=== PATIENT | female | born 1955 | race Caucasian/White ===

== ENCOUNTER 2021-02-23 06:17 | Inpatient (IN) | payer OTHER ==
[2021-02-14 14:48] LABS: BASOPHILS # (AUTO) 0.1 X10'3 (0-0.2); BASOPHILS % (AUTO) 1.2 % (0-1); EOSINOPHILS # (AUTO) 0.1 X10'3 (0-0.9); EOSINOPHILS % (AUTO) 2.4 % (0-6); LYMPHOCYTES % (AUTO) 33.8 % (21-51); MEAN CORPUSCULAR HEMOGLOBIN 33.6 PG (27.0-31.0); MEAN CORPUSCULAR HGB CONC 34.4 g/dL (33.0-36.5); MEAN CORPUSCULAR VOLUME 97.7 FL (78-98); MEAN PLATELET VOLUME 8.8 FL (7.4-10.4); MONOCYTES # (AUTO) 0.4 X10'3 (0-0.9); MONOCYTES % (AUTO) 6.2 % (2-12); NEUTROPHILS # (AUTO) 3.4 X10'3 (1.8-7.7); NEUTROPHILS % (AUTO) 56.4 % (42-75); PRE OP HEMATOCRIT 44.7 % (35.0-45.0); PRE OP HEMOGLOBIN 15.4 g/dL (12.0-16.0); PRE OP PLATELET COUNT 265 X10'3 (140-440); RED BLOOD COUNT 4.57 X10'6 (4.20-5.60); RED CELL DISTRIBUTION WIDTH 13.3 % (11.5-14.5)
[2021-02-14 15:07] LABS: ALBUMIN 4.4 G/DL (3.4-5.0); ALBUMIN/GLOBULIN RATIO 1.4 (1.1-1.5); ALKALINE PHOSPHATASE 39 IU/L (46-116); BLOOD UREA NITROGEN 19 MG/DL (7-18); BUN/CREATININE RATIO 16.5 (6.6-38.0); CALCIUM 9.2 MG/DL (8.5-10.1); CHLORIDE 108 MMOL/L (99-107); CREATININE 1.15 MG/DL (0.40-0.90); PRE OP ALT 53 U/L (30-65); PRE OP ANION GAP 11 (8-16); PRE OP AST 36 U/L (10-37); PRE OP BILIRUB, TOTAL 0.4 MG/DL (0.0-1.0); PRE OP GLUCOSE 140 MG/DL (70-104); PRE OP POTASSIUM 3.5 MMOL/L (3.4-5.1); PRE OP SODIUM 145 MMOL/L (135-145); TOTAL PROTEIN 7.5 G/DL (6.4-8.2); eGFR 48 ML/MIN
[2021-02-14 15:19] LABS: CLARITY,URINE CLEAR (Clear); COLOR,URINE Yellow (Yellow); GLUCOSE, URINE NEGATIVE (Neg); KETONES,URINE NEGATIVE (Neg); NITRITES, URINE NEGATIVE (Neg); OCCULT BLOOD,URINE NEGATIVE (Neg); PROTEIN,URINE NEGATIVE (Neg); UA COLLECTION TYPE CLN CATCH MIDSTREAM; UROBILINOGEN,URINE 0.2 E.U/dL (0.2-1.0)
[2021-02-14 15:20] LABS: LEUKOCYTE ESTERASE ,URINE NEGATIVE (Neg)
[~2021-02-23] VITALS: Ht 157.5 cm; Wt 74.0 kg
[2021-02-23] VITALS (23 sets, daily range): BP systolic 94–138; BP diastolic 56–80
[~2021-02-23 06:17] MED LIST: CHOL400T57 PO; FENO145T26 PO; LEVO75TA PO; MULT-1141 PO; ROSU20TA2 PO; SELE200C PO; VANCOMYCIN 1,500MG inj. 1,500 MG in normal saline 500ml IV soln 500 ML IV ONE; VITA0.4T2 PO; cefazolin/dext.iso 2gm/50ml 50 ML IV ONE; famotidine 20mg tablet PO ONE; ringers solution, lacted 1,000 ML IV SCH; tranexamic acid inj. 1,000 MG in normal saline 100 ML IV ONE
[2021-02-23] MEDS ORDERED: ROPIVAcaine inj 200 MG, epiNEPHrine inj 0.6 MG, morphine 10mg/ml inj. 5 MG in normal sa... IU ONE (07:35)
[2021-02-23] MEDS ORDERED: Thrombin (Bovine) 5,000 unit vial TP ONE (07:43)
[2021-02-23] MEDS ORDERED: vancomycin 1,000mg inj ONE (07:43)
[2021-02-23] MEDS ORDERED: fentaNYL/PF 50MCG/1 ML 2ML syringe ONE (07:52)
[2021-02-23] MEDS ORDERED: MIDAZolam 1mg/ml 10ml vial ONE (07:52)
[2021-02-23] MEDS ORDERED: proCHLORperazine 10 MG/2 ml inj IV PRN (09:20)
[2021-02-23] MEDS ORDERED: ondansetron/PF 4mg/2ml inj IV PRN ×2 (09:20→10:00)
[2021-02-23] MEDS ORDERED: morphine 2 MG/ML inj. syringe IV PRN (09:20)
[2021-02-23] MEDS ORDERED: meperidine/PF 25mg/ml syringe IV PRN ×2 (09:20)
[2021-02-23] MEDS ORDERED: ROPIVAcaine 0.2% (10 MG/5 ML) BOLUS INJECTION ADDCANAL PRN (09:20)
[2021-02-23] MEDS ORDERED: ringers solution, lacted 1,000 ML IV SCH (09:20)
[2021-02-23] MEDS ORDERED: morphine 4 MG/ML inj SYRINge IV PRN (09:20)
[2021-02-23] MEDS ORDERED: ROPIVAcaine 0.5% (5mg/ml) 30ml vial ONE (09:44)
[2021-02-23] MEDS ORDERED: dexamethasone sod phosphate 4mg/ml inj. ONE (09:44)
[2021-02-23] MEDS ORDERED: HYDROmorphone 1 mg/ml syringe IV PRN (10:00)
[2021-02-23] MEDS ORDERED: acetaminophen 325mg tablet PO PRN (10:00)
[2021-02-23] MEDS ORDERED: HYDROmorphone inj. 0.5 MG/0.5 ML DISP.SYRIN IV PRN (10:00)
[2021-02-23] MEDS ORDERED: diphenhydrAMINE 25mg capsule PO PRN ×2 (10:00)
[2021-02-23] MEDS ORDERED: bisacodyl 10mg suppository rectal RC PRN (10:00)
[2021-02-23] MEDS ORDERED: magnesium hydroxide 30ml (MOM) UD suspension PO PRN (10:00)
[2021-02-23] MEDS ORDERED: propofol inj 20 ML IV ONE (10:05)
[2021-02-23] MEDS: ROPIVAcaine 0.2%/PF PUMP/bolus 545 ML ADDCANAL SCH (10:32)
--- NOTE | 2021-02-23 10:42 | NUR ---
MORE AWAKE VSS NO DISTRESS SPINAL LEVEL CHECK L3 RESOLVING C/O PAIN IN RIGHT LEG 09/23 REPOSITION AND MED WITH DEMEROL 25MG IV. CONT TO MONITOR. Addendum: 02/23/21 at 1056 by Amara Heath RN Amended: Links added.
[2021-02-23] MEDS: meperidine/PF 25mg/ml syringe IV PRN ×3 (10:43→12:12)
[2021-02-23] MEDS ORDERED: SIMETHICONE PO PRN ×2 (10:45)
[2021-02-23] MEDS ORDERED: ALUMINUM HYDROXIDE PO PRN ×2 (10:45)
[2021-02-23] MEDS ORDERED: MAGNESIUM HYDROXIDE PO PRN ×2 (10:45)
[2021-02-23] MEDS ORDERED: LIDOCAINE PO PRN ×2 (10:45)
--- NOTE | 2021-02-23 10:50 | NUR ---
C/O OF NAUSEA MED WITH ZOFRAN 4MG IV Addendum: 02/23/21 at 1056 by Amara Heath RN Amended: Links added.
--- NOTE | 2021-02-23 12:13 | NUR ---
Patient in room PAS IN 901. I have received report from JOSE WATKINS RN and had the opportunity to ask questions and assume patient care.
--- NOTE | 2021-02-23 12:18 | NUR ---
PT AWAKE ALERT JULITA POS VSS NO DISTRESS STATES PAIN AND NAUSEA BETTER MEETS CRITERIA TO DC TO MEDICAL FLOOR REPORT CALLED TO NATALIE GUADARRAMA TRANSPORT PT TO ROOM VIA [facility] NOTIFIED OF ROOM # Addendum: 02/23/21 at 1219 by Amara Heath RN Amended: Links added.
[2021-02-23] MEDS ORDERED: tranexamic acid inj. 740 MG in normal saline 100ml IV soln 100 ML IV ONE (13:00)
[2021-02-23] MEDS: gabapentin 300mg capsule PO SCH ×2 (13:08→21:32)
[2021-02-23] MEDS: oxyCODONE IR 5mg (immed. release) tablet PO PRN ×2 (13:10→23:53)
[2021-02-23] MEDS: acetaminophen 325mg tablet PO SCH ×2 (13:11→21:31)
[2021-02-23] MEDS: potassium cl 20mEq in 1/2 NS 1,000 ML IV SCH ×3 (15:05→23:43)
[2021-02-23] MEDS: ceFAZolin/D5W- 1GM premix 50 ML IV SCH ×2 (15:39→23:43)
--- NOTE | 2021-02-23 18:29 | NUR ---
Problems reprioritized. Patient report given, questions answered & plan of care reviewed with HAYDEE GUADARRAMA.
[2021-02-23] MEDS ORDERED: vancomycin/NS 1 GM ADD-VANTAGE 250 ML IV SCH (20:00)
[2021-02-23] MEDS: sennosides 8.6mg tablet PO SCH (21:33)
[2021-02-24] VITALS: BP 120/61
[2021-02-24] MEDS: acetaminophen 325mg tablet PO SCH ×4 (01:44→20:55)
[2021-02-24] MEDS: oxyCODONE IR 5mg (immed. release) tablet PO PRN ×3 (05:45→21:04)
[2021-02-24 06:11] LABS: BASOPHILS % (AUTO) 0.1 % (0-1); EOSINOPHILS % (AUTO) 0.3 % (0-6); HEMATOCRIT 36.5 % (35.0-45.0); HEMOGLOBIN 12.4 g/dl (12.0-16.0); LYMPHOCYTES # (AUTO) 1.5 X10'3 (1.1-4.8); LYMPHOCYTES % (AUTO) 12.8 % (21-51); MEAN CORPUSCULAR HEMOGLOBIN 33.5 PG (27.0-31.0); MEAN CORPUSCULAR HGB CONC 34.1 g/dL (33.0-36.5); MEAN CORPUSCULAR VOLUME 98.3 FL (78-98); MEAN PLATELET VOLUME 8.9 FL (7.4-10.4); MONOCYTES # (AUTO) 0.8 X10'3 (0-0.9); NEUTROPHILS % (AUTO) 79.8 % (42-75); PLATELET COUNT 210 X10'3 (140-440); RED BLOOD COUNT 3.71 X10'6 (4.20-5.60); RED CELL DISTRIBUTION WIDTH 13.6 % (11.5-14.5); WHITE BLOOD COUNT 11.3 X10'3 (4.5-11.0)
[2021-02-24 06:32] LABS: ANION GAP 7 (8-16); CHLORIDE 109 MMOL/L (99-107); POTASSIUM 4.6 MMOL/L (3.5-5.1); SODIUM 141 MMOL/L (135-145); TOTAL CARBON DIOXIDE 25.2 MMOL/L (24-32)
--- NOTE | 2021-02-24 06:32 | NUR ---
Patient in room [facility] 350. I have received report from CHIARA Pacheco and had the opportunity to ask questions and assume patient care.
[2021-02-24 08:00] VITALS: BP 135/60
[2021-02-24] MEDS ORDERED: SELENIUM 200 MCG PO SCH (08:00)
[2021-02-24] MEDS ORDERED: cholecalciferol (vitamin D3) 400 unit (10mcg) tablet PO SCH (08:00)
[2021-02-24] MEDS: potassium cl 20mEq in 1/2 NS 1,000 ML IV SCH ×2 (08:08→17:18)
[2021-02-24] MEDS: gabapentin 300mg capsule PO SCH ×3 (08:08→20:54)
[2021-02-24] MEDS: atorvastatin 20mg tablet PO SCH (08:08)
[2021-02-24] MEDS: vitamin B comp w/Vit. C tab 1 TAB TABLET PO SCH (08:08)
[2021-02-24] MEDS: levoTHYROXINE 25mcg tablet PO SCH (08:08)
[2021-02-24] MEDS: fenofibrate 145mg tablet PO SCH (08:09)
[2021-02-24] MEDS: cholecalciferol (vitamin D3) 1,000 unit (25mcg) tablet PO SCH (08:09)
[2021-02-24] MEDS: aspirin 325mg tablet PO SCH (08:11)
--- NOTE | 2021-02-24 11:15 | NUR ---
Primary Joint consult: Pt s/p R knee arthroplasty 02/23. Provided pt w/ written and verbal high protein diet education w/ RD contact info. Pt receptive of info. Addendum: 02/24/21 at [address] Amended: Links added.
[2021-02-24 12:00] VITALS: BP 129/79
--- NOTE | 2021-02-24 12:20 | NUR ---
FC DC'd per Queta Brunson's order. Pt tolerated well. Instructions provided regarding post FC removal. Pt states understanding and willingness to comply. Will continue to monitor.
[2021-02-24 18:00] VITALS: BP 136/74
--- NOTE | 2021-02-24 18:23 | NUR ---
Problems reprioritized. Patient report given, questions answered & plan of care reviewed with CHIARA Dietrich.
[2021-02-24] MEDS: celeCOXIB 100mg capsule PO SCH (20:54)
[2021-02-24] MEDS: sennosides 8.6mg tablet PO SCH (20:55)
[2021-02-25] VITALS: BP 131/68
[2021-02-25] MEDS: potassium cl 20mEq in 1/2 NS 1,000 ML IV SCH (00:56)
[2021-02-25] MEDS: acetaminophen 325mg tablet PO SCH ×2 (03:12→07:15)
[2021-02-25 03:30] VITALS: BP 134/77
[2021-02-25 06:27] LABS: BASOPHILS # (AUTO) 0.1 X10'3 (0-0.2); BASOPHILS % (AUTO) 0.8 % (0-1); EOSINOPHILS # (AUTO) 0.3 X10'3 (0-0.9); EOSINOPHILS % (AUTO) 3.2 % (0-6); HEMATOCRIT 35.9 % (35.0-45.0); HEMOGLOBIN 12.2 g/dl (12.0-16.0); LYMPHOCYTES # (AUTO) 1.7 X10'3 (1.1-4.8); LYMPHOCYTES % (AUTO) 18.9 % (21-51); MEAN CORPUSCULAR HEMOGLOBIN 33.7 PG (27.0-31.0); MEAN CORPUSCULAR VOLUME 99.1 FL (78-98); MEAN PLATELET VOLUME 8.9 FL (7.4-10.4); MONOCYTES % (AUTO) 11.4 % (2-12); NEUTROPHILS % (AUTO) 65.7 % (42-75); PLATELET COUNT 179 X10'3 (140-440); RED BLOOD COUNT 3.62 X10'6 (4.20-5.60); RED CELL DISTRIBUTION WIDTH 13.6 % (11.5-14.5); WHITE BLOOD COUNT 9.1 X10'3 (4.5-11.0)
--- NOTE | 2021-02-25 06:31 | NUR ---
Problems reprioritized. Patient report given, questions answered & plan of care reviewed with Maria M.
[2021-02-25 07:00] VITALS: BP 137/73
--- NOTE | 2021-02-25 07:01 | NUR ---
Student documentation: I have reviewed and agree with all interventions, assessments performed and documented by Alejandra, Student RN.
--- NOTE | 2021-02-25 07:03 | NUR ---
Problems reprioritized. Patient report given, questions answered & plan of care reviewed with CHIARA Franz.
[2021-02-25] MEDS: atorvastatin 20mg tablet PO SCH (07:12)
[2021-02-25] MEDS: cholecalciferol (vitamin D3) 1,000 unit (25mcg) tablet PO SCH (07:12)
[2021-02-25] MEDS: fenofibrate 145mg tablet PO SCH (07:13)
[2021-02-25] MEDS: gabapentin 300mg capsule PO SCH ×2 (07:13→13:57)
[2021-02-25] MEDS: levoTHYROXINE 25mcg tablet PO SCH (07:13)
[2021-02-25] MEDS: celeCOXIB 100mg capsule PO SCH (07:13)
[2021-02-25] MEDS: vitamin B comp w/Vit. C tab 1 TAB TABLET PO SCH (07:15)
[2021-02-25] MEDS: ROPIVAcaine 0.2%/PF PUMP/bolus 545 ML ADDCANAL SCH (07:16)
[2021-02-25] MEDS: oxyCODONE IR 5mg (immed. release) tablet PO PRN ×2 (07:24→14:39)
[2021-02-25] MEDS: aspirin 325mg tablet PO SCH (07:25)
[2021-02-25] MEDS ORDERED: acetaminophen 325mg tablet PO PRN (10:00)
[2021-02-25 12:00] VITALS: BP 133/71
--- NOTE | 2021-02-25 15:10 | NUR ---
Pt discharged to home with all belongings, in private vehicle, accompanied by son. Discharge instructions and medications reviewed. New prescriptions filled by pt prior to admission. Pt instructed to follow up with Dr Plata at scheduled appointment, and to contact his office with any concerns of infection. Dressing to right knee changed prior to DC per written orders. Incision was well approximated, su intact, and no signs/symptoms of infection noted. New On-Q ball provided to pt prior to discharge, with instructions on how to remove when empty. Pt stated understanding and willingness to comply with all discharge instructions. IV DC'd, cannula intact. Pt escorted to front lobby via wheelchair by primary RN.
== END 2021-02-25 15:08 | disposition home or self-care (01) | DRG 470 ==
LOC: UNDOADMIN 06:17 → PAS IN 06:17 → UNDOADMIN 10:13 → SUR 3N 12:42 → PAS IN 12:42 → SUR 3N 13:10 → PAS IN 02-24 16:56 → SUR 3N 02-24 16:56 → UNDODISIN 02-25 15:08
PROVIDERS: ADMIT Orthopaedic Surgery; ATTEND Orthopaedic Surgery
PROC: 3E0T3BZ Introduction of Anesthetic Agent into Peripheral Nerves and Plexi, Percutaneous Approach (ICD-10-PCS; 2021-02-23)
PROC: 3E0T33Z Introduction of Anti-inflammatory into Peripheral Nerves and Plexi, Percutaneous Approach (ICD-10-PCS; 2021-02-23)
PROC: 0SRC0JA Replacement of Right Knee Joint with Synthetic Substitute, Uncemented, Open Approach (ICD-10-PCS; principal; 2021-02-23 07:55)
DX: M17.11 Unilateral primary osteoarthritis, right knee (principal); M25.762 Osteophyte, left knee; Z20.822 Contact with and (suspected) exposure to COVID-19
CPT/HCPCS: Z7506; Z7508; 36415; 73560; 80051; 80053; 81003; 82948; 84443; 85025; 87081; 93005; 97110; 97116; 97161; 97530; A4215; A7000; C1758; C1776; G0378; J0690; J1100; J2175; J2250; J2405; J2704; J2795; J3010; J3370; J3480; J7040; J7120; U0003; U0005

== ENCOUNTER 2022-02-15 05:33 | Inpatient (IN) | payer OTHER ==
[2022-02-09 15:53] LABS: BASOPHILS # (AUTO) 0.1 X10'3 (0-0.2); BASOPHILS % (AUTO) 1.3 % (0-1); EOSINOPHILS # (AUTO) 0.1 X10'3 (0-0.9); EOSINOPHILS % (AUTO) 1.8 % (0-6); LYMPHOCYTES % (AUTO) 27.6 % (21-51); MEAN CORPUSCULAR HEMOGLOBIN 33.3 PG (27.0-31.0); MEAN CORPUSCULAR HGB CONC 33.8 g/dL (33.0-36.5); MEAN CORPUSCULAR VOLUME 98.6 FL (78-98); MEAN PLATELET VOLUME 8.8 FL (7.4-10.4); MONOCYTES # (AUTO) 0.4 X10'3 (0-0.9); MONOCYTES % (AUTO) 5.9 % (2-12); NEUTROPHILS # (AUTO) 4.7 X10'3 (1.8-7.7); NEUTROPHILS % (AUTO) 63.4 % (42-75); PRE OP HEMOGLOBIN 15.6 g/dL (12.0-16.0); PRE OP PLATELET COUNT 253 X10'3 (140-440); RED BLOOD COUNT 4.67 X10'6 (4.20-5.60); RED CELL DISTRIBUTION WIDTH 13.4 % (11.5-14.5)
[2022-02-09 16:13] LABS: ALBUMIN 4.6 G/DL (3.4-5.0); ALBUMIN/GLOBULIN RATIO 1.4 (1.1-1.5); ALKALINE PHOSPHATASE 50 IU/L (46-116); BLOOD UREA NITROGEN 17 MG/DL (7-18); BUN/CREATININE RATIO 14.5 (6.6-38.0); CALCIUM 9.6 MG/DL (8.5-10.1); CHLORIDE 105 MMOL/L (99-107); CREATININE 1.17 MG/DL (0.40-0.90); PRE OP ANION GAP 8 (8-16); PRE OP AST 53 U/L (10-37); PRE OP BILIRUB, TOTAL 0.5 MG/DL (0.0-1.0); PRE OP GLUCOSE 132 MG/DL (70-104); PRE OP POTASSIUM 3.7 MMOL/L (3.4-5.1); PRE OP SODIUM 143 MMOL/L (135-145); TOTAL PROTEIN 7.9 G/DL (6.4-8.2); eGFR 46 ML/MIN
[2022-02-09 16:38] LABS: PRE OP ALT 81 U/L (30-65)
[2022-02-15] VITALS (25 sets, daily range): BP systolic 91–140; BP diastolic 47–82
[~2022-02-15] VITALS: Ht 157.5 cm; Wt 75.9 kg
--- NOTE | 2022-02-15 05:30 | NUR ---
CSM: PEDAL PULSES PRESENT. PATIENT WATCHED THE VIDEO, USED THE MUPIROCIN CREAM, AND WAS EDUCATED ON THE USE OF THE INCENTIVE SPIROMETER AND ITS IMPORTANCE
[~2022-02-15 05:33] MED LIST changes: -CHOL400T57 PO; +LEVO25TA2 PO; -LEVO75TA PO; -MULT-1141 PO; -SELE200C PO; -VANCOMYCIN 1,500MG inj. 1,500 MG in normal saline 500ml IV soln 500 ML IV ONE; -VITA0.4T2 PO; +ceFAZolin inj. 2,000 MG in dextrose 5%-water 100 ML IV ONE; -cefazolin/dext.iso 2gm/50ml 50 ML IV ONE; -tranexamic acid inj. 1,000 MG in normal saline 100 ML IV ONE; +tranexamic acid inj. 1,000 MG in normal saline IV soln 100ML IV ONE; +vancomycin/NS 1 GM in NS 250 ML IV ONE
[2022-02-15] MEDS ORDERED: ketorolac trometh. 30mg/ml inj. ONE (06:20)
[2022-02-15] MEDS ORDERED: epiNEPHrine 1 mg/ml inj ONE (06:20)
[2022-02-15] MEDS ORDERED: morphine 10mg/ml inj. ONE (06:21)
[2022-02-15] MEDS ORDERED: vancomycin 1,000mg inj ONE (06:21)
[2022-02-15] MEDS ORDERED: ROPIVAcaine 0.5% (5mg/ml) 30ml vial ONE ×2 (06:21→07:13)
[2022-02-15] MEDS ORDERED: cloNIDine hcl/PF 100mcg/ml inj ONE (07:13)
[2022-02-15] MEDS ORDERED: MIDAZolam 1 MG/ML 5ML VIAL ONE (07:34)
[2022-02-15] MEDS ORDERED: fentaNYL/PF 50MCG/1 ML 2ML syringe ONE (07:34)
[2022-02-15] MEDS ORDERED: LIDOcaine 1%/PF 5ML 10 MG/ML VIAL ONE (07:46)
[2022-02-15] MEDS ORDERED: propofol inj 20 ML IV ONE (07:46)
[2022-02-15] MEDS ORDERED: ePHEDrine 50MG/ML INJ. ONE (08:04)
[2022-02-15] MEDS ORDERED: epiNEPHrine 1 mg/ml inj IM ONE (08:30)
[2022-02-15] MEDS ORDERED: morphine 10mg/ml inj. IM ONE (08:30)
[2022-02-15] MEDS ORDERED: ROPIVAcaine 0.5% (5mg/ml) 30ml vial IJ ONE (08:30)
[2022-02-15] MEDS ORDERED: ondansetron/PF 4mg/2ml inj IV PRN ×2 (08:45→09:45)
[2022-02-15] MEDS ORDERED: ringers solution, lacted 1,000 ML IV SCH (08:45)
[2022-02-15] MEDS ORDERED: ROPIVAcaine 0.2%/PF PUMP/bolus 545 ML ADDCANAL SCH (08:45)
[2022-02-15] MEDS ORDERED: ROPIVAcaine 0.2% (10 MG/5 ML) BOLUS INJECTION ADDCANAL PRN (08:45)
[2022-02-15] MEDS ORDERED: morphine 4 MG/ML inj SYRINge IV PRN (08:45)
[2022-02-15] MEDS ORDERED: morphine 2 MG/ML inj. syringe IV PRN (08:45)
[2022-02-15] MEDS ORDERED: meperidine/PF 25mg/ml syringe IV PRN ×3 (08:45)
[2022-02-15] MEDS ORDERED: proCHLORperazine 10 MG/2 ml inj IV PRN (08:45)
--- NOTE | 2022-02-15 09:38 | NUR ---
Received from OR via BED, accompanied by Anesthesiologist and report given by BILL Anesthesiologist. PATIENT WAKING UP, DENIES PAIN, V/S WNL, SCD ON, 20G TO RIGHT FOREARM, DRESSING to RIGHT KNEE C/D/I with POWDER ICE PACK. ON-Q CATHETER DRESSING C/D/I. Addendum: 02/15/22 at 0919 by Jorge Guan RN Amended: Links added.
[2022-02-15] MEDS ORDERED: acetaminophen 325mg tablet PO PRN (09:45)
[2022-02-15] MEDS ORDERED: bisacodyl 10mg suppository rectal RC PRN (09:45)
[2022-02-15] MEDS ORDERED: naloxone 0.4 mg/ml inj IV PRN (09:45)
[2022-02-15] MEDS ORDERED: diphenhydrAMINE 25mg capsule PO PRN ×2 (09:45)
[2022-02-15] MEDS ORDERED: HYDROmorphone 1 mg/ml syringe IV PRN (09:45)
[2022-02-15] MEDS ORDERED: oxyCODONE IR 5mg (immed. release) tablet PO PRN ×2 (09:45)
[2022-02-15] MEDS ORDERED: HYDROmorphone inj. 0.5 MG/0.5 ML DISP.SYRIN IV PRN (09:45)
[2022-02-15] MEDS ORDERED: magnesium hydroxide 30ml (MOM) UD suspension PO PRN (09:45)
[2022-02-15] MEDS ORDERED: tranexamic acid inj. 760 MG in normal saline 100ml IV soln 100 ML IV ONE (09:45)
[2022-02-15] MEDS ORDERED: TRANEXAMIC ACID IV ONE (11:00)
[2022-02-15] MEDS ORDERED: NORMAL SALINE IV ONE (11:00)
--- NOTE | 2022-02-15 11:48 | NUR ---
PATIENT HAS MET ALL CRITERIA FOR TRANSFER TO SURGICAL FLOOR. VSS. DRESSINGS INTACT. BED LOW, CALL LIGHT PRESENT AND 2 RAILS UP. RN PRESENT TO ACCEPT CARE OF PATIENT AND REPORT HAS BEEN CALLED. ALL QUESTIONS ANSWERED TO ACCEPTING RN. Addendum: 02/15/22 at 1200 by Jorge Guan RN Amended: Links added.
[2022-02-15] MEDS: gabapentin 300mg capsule PO SCH ×2 (12:40→20:28)
--- NOTE | 2022-02-15 12:44 | NUR ---
Received patient to room 355A via bed accompanied by CHIARA Velasquez. Patient alert and oriented with c/o min pain at this time. ONQ ball intact and patent patient educated on use. Right knee with dressing and knee wrap with jovita powder pack, CDI. Patient post op vital initiated VSS. Patient oriented to room and call light. Call light within patient's reach.
[2022-02-15] MEDS: acetaminophen 325mg tablet PO SCH ×2 (14:34→20:27)
[2022-02-15] MEDS: ceFAZolin/D5W- 1GM premix 50 ML IV SCH (15:44)
[2022-02-15] MEDS: potassium cl 20mEq in 1/2 NS 1,000 ML IV SCH ×2 (15:46→17:45)
--- NOTE | 2022-02-15 18:32 | NUR ---
Problems reprioritized. Patient report given, questions answered & plan of care reviewed with CHIARA Fish.
[2022-02-15] MEDS ORDERED: vancomycin/NS 1 GM ADD-VANTAGE 250 ML IV SCH (20:00)
[2022-02-15] MEDS ORDERED: sennosides 8.6mg tablet PO SCH (21:00)
[2022-02-16] MEDS: ceFAZolin/D5W- 1GM premix 50 ML IV SCH (00:55)
[2022-02-16] MEDS: potassium cl 20mEq in 1/2 NS 1,000 ML IV SCH ×3 (00:59→09:45)
[2022-02-16] MEDS: acetaminophen 325mg tablet PO SCH ×3 (02:14→13:21)
--- NOTE | 2022-02-16 06:25 | NUR ---
Patient in room [facility] 355. I have received report from CHIARA Fish and had the opportunity to ask questions and assume patient care.
[2022-02-16 06:55] VITALS: BP 101/61
[2022-02-16] MEDS ORDERED: enoxaparin 40mg/0.4ml syringe SQ SCH (08:00)
[2022-02-16] MEDS: gabapentin 300mg capsule PO SCH ×2 (08:06→13:21)
[2022-02-16 10:44] VITALS: BP 106/53
--- NOTE | 2022-02-16 14:01 | NUR ---
patient alert and oriented in no apparent acute distress. discussed with patient discharge information . patient verbalizes understanding of teaching with no questions as patient states she has had the same surgery prior. patient dc'd with all personal belongings and escorted out in wheelchair. spouse here to transport home in private vehicle.
[2022-02-16] MEDS ORDERED: celeCOXIB 100mg capsule PO SCH (20:00)
[2022-02-17] MEDS ORDERED: acetaminophen 325mg tablet PO PRN (09:45)
== END 2022-02-16 13:52 | disposition home or self-care (01) | DRG 465 ==
LOC: PAS IN 05:33 → SUR 3N 12:02
PROVIDERS: ADMIT Orthopaedic Surgery; ATTEND Orthopaedic Surgery
PROC: 0SUC09Z Supplement Right Knee Joint with Liner, Open Approach (ICD-10-PCS; 2022-02-15)
PROC: 3E0T3BZ Introduction of Anesthetic Agent into Peripheral Nerves and Plexi, Percutaneous Approach (ICD-10-PCS; 2022-02-15)
PROC: 3E0T33Z Introduction of Anti-inflammatory into Peripheral Nerves and Plexi, Percutaneous Approach (ICD-10-PCS; 2022-02-15)
PROC: 0SPC09Z Removal of Liner from Right Knee Joint, Open Approach (ICD-10-PCS; principal; 2022-02-15 07:22)
DX: T84.022A Instability of internal right knee prosthesis, initial encounter (principal); Y79.2 Prosthetic and other implants, materials and accessory orthopedic devices associated with adverse incidents; E78.2 Mixed hyperlipidemia; E03.9 Hypothyroidism, unspecified; J44.9 Chronic obstructive pulmonary disease, unspecified; Y92.89 Other specified places as the place of occurrence of the external cause; Z79.899 Other long term (current) drug therapy; Z88.1 Allergy status to other antibiotic agents
CPT/HCPCS: Z7506; Z7508; 36415; 80053; 82948; 84443; 85025; 87081; 93005; 97116; 97161; 97530; A4215; A4618; A6258; A6446; A6449; A7000; C1776; C9250; G0378; J0171; J0690; J0735; J1650; J1885; J2250; J2274; J2405; J2704; J2795; J3010; J3370; J3480; J3490; J7060; J7120